=== PATIENT | male | born 1960 | race Caucasian/White ===

== ENCOUNTER → 2016-07-23 | Outpatient (CLI) | payer BC | END | disposition home or self-care (01) | LOC: GMAM 10:42 | PROVIDERS: ATTEND Family Medicine | DX: R53.82 Chronic fatigue, unspecified (principal) ==

== ENCOUNTER → 2016-08-20 | Outpatient (CLI) | payer BC | END | disposition home or self-care (01) | LOC: GMAM 11:22 | PROVIDERS: ATTEND Family Medicine | DX: R94.6 Abnormal results of thyroid function studies (principal) ==

== ENCOUNTER → 2016-08-28 | Outpatient (CLI) | payer BC, SELFPAY ==
--- NOTE | 2016-08-28 16:44 | MRI ---
EXAM: Brain w/wo Contrast CLINICAL INDICATION: 56-year-old male with testosterone deficiency. COMPARISON: None. TECHNIQUE: Multiplanar, multi-sequence MR imaging of the brain and pituitary pre-and post intravenous administration of gadolinium, including dynamic enhancement protocol. FINDINGS: Pituitary: The pituitary gland is identified within normal limits of morphology and signal intensity. On postcontrast imaging, no abnormal signal pattern is identified. The pituitary stalk is within normal limits of morphology and enhancement pattern, slightly leftward deviated. The pituitary gland measures approximately 4 mm in height. Limited brain: Limited imaging through the brain reveals no abnormal signal is seen on the T2, FLAIR or diffusion weighted images. Midline structures are within normal limits. No abnormal post gadolinium enhancement. The ventricles sulci are slightly prominent suggesting mild underlying volume loss. Major intracranial flow voids are identified. The paranasal sinuses and mastoid air cells are patent. IMPRESSION: 1. MRI brain within normal limits. 2. Pituitary gland within normal limits as detailed above without specific findings noted to suggest etiology of the patient's symptoms. Electronically signed by: Jocelyn Alarcon MD 08/28/2016 4:43 PM CDT
== END | disposition home or self-care (01) ==
LOC: MRI 07:48
PROVIDERS: ATTEND Family Medicine
DX: R94.6 Abnormal results of thyroid function studies (principal)

== ENCOUNTER → 2017-03-13 | Outpatient (CLI) | payer BC | END | disposition home or self-care (01) | LOC: GMAM 10:45 | PROVIDERS: ATTEND Family Medicine | DX: R94.6 Abnormal results of thyroid function studies (principal); E29.9 Testicular dysfunction, unspecified ==

== ENCOUNTER → 2017-03-18 | Outpatient (CLI) | payer BC | END | disposition home or self-care (01) | LOC: LAB.O 10:57 | PROVIDERS: ATTEND Family Medicine | DX: D75.1 Secondary polycythemia (principal) ==

== ENCOUNTER → 2017-09-10 | Outpatient (CLI) | payer BC | LOC: GMAM 11:33 | PROVIDERS: ATTEND Family Medicine | DX: R94.6 Abnormal results of thyroid function studies (principal); Z12.5 Encounter for screening for malignant neoplasm of prostate ==

== ENCOUNTER → 2018-03-11 | Outpatient (CLI) | payer BC | LOC: GMAM 10:37 | PROVIDERS: ATTEND Family Medicine | DX: E03.9 Hypothyroidism, unspecified (principal); E29.9 Testicular dysfunction, unspecified ==

== ENCOUNTER 2018-04-09 05:30 | Day surgery (SDC) | payer BC ==
[2018-04-09] MEDS ORDERED: LIDOCAINE 1% 10 ML VIAL INJ ONE (07:00)
[2018-04-09] MEDS ORDERED: PROPOFOL 200 MG/20 ML VIAL IV ONE (07:00)
[2018-04-09] MEDS: LACTATED RINGERS 1,000 ML ONE (07:20)
[2018-04-09] MEDS ORDERED: fentaNYL CITRATE INJ 50 MCG/ML AMP ONE (07:22)
[2018-04-09] MEDS ORDERED: MIDAZOLAM INJ 2 MG/2 ML VIAL ONE (07:22)
--- NOTE | 2018-04-09 08:58 | OP ---
DATE OF PROCEDURE: 04/09/18 INDICATION: Age greater than 50 with no previous colonoscopy. PREOPERATIVE DIAGNOSIS: 1. Age greater than 50 with no previous colonoscopy. POSTOPERATIVE DIAGNOSIS: 1. Colonoscopy completed to the cecum with good prep. 2. Cecal polyp, 4 to 5 mm in size, removed with the straight forceps biopsy. 3. Sigmoid colonic polyp, 4 mm in size, appearing hyperplastic and removed completely with the forceps biopsy. 4. Otherwise, unremarkable colonoscopy. PROCEDURE: 1. Colonoscopy with polypectomy. SURGEON: Ran Wells MD ANESTHESIA: Per Steven Lester CRNA. COMPLICATIONS: None apparent. ESTIMATED BLOOD LOSS: Less than 10 mL. SPECIMENS: Pathology sent includes two polyps. TECHNIQUE: The patient was brought to the GI lab and laid in the left lateral decubitus position. Digital rectal exam was performed and found to be normal. The prostate was normal in size and texture. The colonoscope was placed into the rectum and slowly through to the cecum. The cecum was well visualized. The ileocecal valve was not cannulated. A 4 to 5 mm polyp that appeared to be hyperplastic was noted. This was removed with the straight forceps biopsy. Good hemostasis was achieved. The scope was then withdrawn gradually back through the ascending colon into the transverse colon, which both appeared normal, back through the transverse colon and into the descending colon, which also appeared normal. The scope was withdrawn into the sigmoid colon and at approximately 35 cm, a small 4 mm polyp was noted. This appeared to be hyperplastic. It was removed with straight forceps biopsy. Good hemostasis was noted. The scope was withdrawn on into the rectum. There was attempt made to retroflex twice, but it was unsuccessful. The scope was then straightened and withdrawn very slowly through the rectum. No other abnormalities were noted in the rectum. The patient tolerated the procedure well. There were no obvious complications. DISPOSITION: The patient will be discharged home. This patient had two polyps and I would anticipate having another colonoscopy in five years depending on the pathology results. #[id number] [facility]
[2018-04-09 09:27] VITALS: BP 125/88; TEMP 97; O2SAT 98
== END 2018-04-09 09:13 | disposition home or self-care (01) ==
LOC: AMB 05:30
PROVIDERS: ATTEND Family Medicine
DX: Z12.11 Encounter for screening for malignant neoplasm of colon (principal); D12.0 Benign neoplasm of cecum; K62.5 Hemorrhage of anus and rectum; I10 Essential (primary) hypertension; E03.9 Hypothyroidism, unspecified; E78.00 Pure hypercholesterolemia, unspecified; F41.9 Anxiety disorder, unspecified; F51.04 Psychophysiologic insomnia; Z87.891 Personal history of nicotine dependence; Z82.49 Family history of ischemic heart disease and other diseases of the circulatory system; Z80.0 Family history of malignant neoplasm of digestive organs; Z83.79 Family history of other diseases of the digestive system; Z79.899 Other long term (current) drug therapy
CPT/HCPCS: 00812; 45380; J2250; J3010; J3490; J7120

== ENCOUNTER → 2019-10-20 | Outpatient (CLI) | payer BC | LOC: GMAM 10:35 | PROVIDERS: ATTEND Family Medicine | DX: E03.9 Hypothyroidism, unspecified (principal); E78.2 Mixed hyperlipidemia; I10 Essential (primary) hypertension ==

== ENCOUNTER → 2020-04-20 | Outpatient (CLI) | payer BC | LOC: GMAM 10:30 | PROVIDERS: ATTEND Family Medicine | DX: E03.9 Hypothyroidism, unspecified (principal); I10 Essential (primary) hypertension; Z12.5 Encounter for screening for malignant neoplasm of prostate; E29.9 Testicular dysfunction, unspecified ==

== ENCOUNTER → 2020-04-25 | Outpatient (CLI) | payer BC | LOC: GMAM 10:22 | PROVIDERS: ATTEND Family Medicine | DX: R94.5 Abnormal results of liver function studies (principal) ==